=== PATIENT | male | born 1940 | race African-American/Black ===

== ENCOUNTER → 2016-12-02 | Outpatient (CLI) | payer OTHER ==
[2014-07-28 11:35] VITALS: BP 131/65
[~2016-12-02] MED LIST: AMLO1CAP5 PO; DORZ10DR21 EACHEYE; HYDR25TA9 PO; LATA2.5D2 EACHEYE; MESA800T2 PO; PIOG30TA20 PO; SIMV20TA PO; SITA1TAB11 PO; TERA10CA3 PO
--- NOTE | 2016-12-02 15:38 | RAD ---
Indication renal cyst. Grayscale imaging targeted to the kidneys was performed. The right kidney measures 10.5 x 4.6 x 3.9 cm and appears unremarkable. No hydronephrosis or mass is seen. The left kidney measures approximately 10.9 x 4.5 x 5.1 cm. There is a hypoechoic 5.2 cm mass attached to the left kidney compatible with a cyst. A similar finding was referenced on an examination 06/10/2016. Note is additionally made of a left renal calculus on this exam measuring approximately 1.4 cm in greatest dimension. Somewhat enlarged prostate additionally noted. IMPRESSION: Left renal cyst. Left renal calculus. Slightly enlarged prostate
== END | disposition home or self-care (01) ==
LOC: US 15:59
PROVIDERS: ATTEND Internal Medicine
DX: N20.0 Calculus of kidney (principal); N40.0 Benign prostatic hyperplasia without lower urinary tract symptoms
CPT/HCPCS: 76770

== ENCOUNTER → 2017-03-10 | Outpatient (CLI) | payer MEDICARE, OTHER ==
[2014-07-28 11:35] VITALS: BP 131/65
[~2017-03-10] MED LIST changes: +CONTRAST GIVEN MC PRN; +IOHEXOL 240 MG/ML 50ML VIAL. PO ONE; -PIOG30TA20 PO; +PIOG30TA41 PO
--- NOTE | 2017-03-10 18:16 | RAD ---
CT ABDOMEN AND PELVIS WITHOUT IV CONTRAST History: Abdominal mass seen on colonoscopy dated 02/07/2017 Comparison: Renal ultrasound dated 12/02/2016 Technique: After administration of oral contrast only due to elevated creatinine, Helical CT of the abdomen and pelvis was performed from the lung bases through the ischial tuberosities. Axial and coronal reconstructions were obtained. Abdomen Findings: Borderline cardiomegaly. Coronary artery calcifications. Bilateral linear pulmonary opacities likely related to atelectasis versus scarring. Evaluation of visceral organs is limited without intravenous contrast. Layering hyperattenuating material within the gallbladder. No gallbladder wall thickening or pericholecystic fluid. The liver, spleen, pancreas, and bilateral adrenal glands are normal. Small bilateral kidneys. 5.1 x 5.0 cm simple cyst off the inferior pole of the left kidney. 0.9 cm and 1.0 cm calculi in the left renal collecting system. No hydronephrosis or hydroureter. Visualized loops of l small bowel are normal. Narrowing within the sigmoid colon (image 41, series 2) with focal dilation of the large bowel immediately proximal to this up to 5.6 cm. Appendix appears within normal limits. There is no significant abdominal adenopathy. Mild atherosclerosis of the normal caliber abdominal aorta and its branches. Pelvis findings: Urinary bladder is normal. There is no free fluid. There is no significant pelvic or inguinal adenopathy. There is no acute bony abnormality. Mild multilevel degenerative changes of the visualized spine. IMPRESSION: 1. Narrowing within the sigmoid colon with focal dilation of the large bowel immediately proximal to this. Findings are concerning for malignancy, although discrete mass is not identified.. Recommend correlation with endoscopic findings. 2. No intra-abdominal or intrapelvic lymphadenopathy. 2. Layering hyperattenuating material within the gallbladder. Findings may relate to sludge or tiny stones. If patient received IV contrast at outside facility, this could relate to vicarious excretion of contrast. 3. Small bilateral kidneys. Simple left renal cyst. Nonobstructing left renal calculi. PQRS Compliance Statement: One or more of the following individualized dose reduction techniques were utilized for this examination: 1. Automated exposure control 2. Adjustment of the mA and/or kV according to patient size 3. Use of iterative reconstruction technique
== END | disposition home or self-care (01) ==
LOC: CT 08:54
PROVIDERS: ATTEND Internal Medicine Gastroenterology
DX: N28.1 Cyst of kidney, acquired (principal); N20.0 Calculus of kidney
CPT/HCPCS: 74176; Q9966

== ENCOUNTER 2017-08-20 18:44 | Inpatient (IN) | payer OTHER, MEDICARE ==
[2017-08-20] MEDS ORDERED: HYDROcodone/APAP 5/325MG 1 TAB TABLET PO (20:30)
[2017-08-20] MEDS ORDERED: DEXTROSE 50% 25 GM / 50ML DISP.SYRIN. IV (20:30)
[2017-08-20] MEDS ORDERED: ZOLPIDEM 5 MG TABLET. PO (20:30)
[2017-08-20] MEDS: DORZOLAMIDE/TIMOLOL 2%/0.5% OPHTH SOLUTION 10ML BOTTLE. OU (21:00)
[2017-08-20] MEDS: LATANOPROST 0.005% OPHTH SOLUTION 2.5ML BOTTLE. OU (21:00)
[2017-08-20 21:07] LABS: POC GLUCOSE 100 mg/dL (70-99)
[2017-08-20 22:18] LABS: ADD MAN DIFF? NO
[2017-08-20 22:20] LABS: BASO % 0 % (0-3); EOS # 0.2 x10^3/uL (0.0-0.7); EOS % 5 % (0-3); HEMATOCRIT 32.5 % (39.0-53.0); HEMOGLOBIN 10.9 g/dL (13.0-17.5); LYMPH # 1.2 x10^3/uL (1.0-4.8); LYMPH % 28 % (24-48); MEAN CORPUSCULAR HEMOGLOBIN 31 pg (25-35); MEAN CORPUSCULAR HGB CONC 34 g/dL (31-37); MEAN CORPUSCULAR VOLUME 91 fL (79-100); MONO # 0.8 x10^3/uL (0.0-1.1); MONO % 18 % (0-9); NEUT # 2.2 x10^3uL (1.8-7.7); NEUT % 49 % (31-73); PLATELET COUNT 250 x10^3/uL (140-400); RED BLOOD COUNT 3.56 x10^6/uL (4.30-5.70); WHITE BLOOD COUNT 4.4 x10^3/uL (4.0-11.0)
[2017-08-20] MEDS: IV NORMAL SALINE 1000ML BAG 1,000 ML IV (22:30)
[2017-08-20 22:37] LABS: ALBUMIN 2.8 g/dL (3.4-5.0); ALBUMIN/GLOBULIN RATIO 0.7 (1.0-1.7); ALK PHOS 48 U/L (46-116); ALT (SGPT) 14 U/L (16-63); ANION GAP 14 (6-14); AST (SGOT) 13 U/L (15-37); BLOOD UREA NITROGEN 44 mg/dL (8-26); BUN/CREATININE RATIO 11 (6-20); CALCIUM 8.2 mg/dL (8.5-10.1); CARBON DIOXIDE 20 mmol/L (21-32); CHLORIDE 105 mmol/L (98-107); CREATININE 4.1 mg/dL (0.7-1.3); GFR 17.3; GLUCOSE 93 mg/dL (70-99); POTASSIUM 3.7 mmol/L (3.5-5.1); SODIUM 139 mmol/L (136-145); TOTAL BILIRUBIN 0.3 mg/dL (0.2-1.0); TOTAL PROTEIN 7.1 g/dL (6.4-8.2)
[2017-08-21 04:02] LABS: ANION GAP 12 (6-14); BLOOD UREA NITROGEN 41 mg/dL (8-26); CALCIUM 8.3 mg/dL (8.5-10.1); CARBON DIOXIDE 21 mmol/L (21-32); CHLORIDE 109 mmol/L (98-107); GFR 17.8; GLUCOSE 91 mg/dL (70-99); POTASSIUM 3.6 mmol/L (3.5-5.1); SODIUM 142 mmol/L (136-145)
[2017-08-21] MEDS: INSULIN ASPART 300 UNITS/3 ML INSULN.PEN SQ ×3 (08:00→16:58)
[2017-08-21] MEDS: IV NORMAL SALINE 1000ML BAG 1,000 ML IV ×2 (08:10→17:56)
[2017-08-21] MEDS: REPAGLINIDE 0.5 MG TABLET PO ×2 (08:18→17:05)
[2017-08-21 08:21] LABS: POC GLUCOSE 116 mg/dL (70-99)
[2017-08-21] MEDS: DORZOLAMIDE/TIMOLOL 2%/0.5% OPHTH SOLUTION 10ML BOTTLE. OU ×2 (09:00→20:33)
[2017-08-21] MEDS: LINAGLIPTIN 5 MG TABLET PO (09:17)
[2017-08-21] MEDS: POLYETHYLENE GLYCOL 3350 17 GM PACKET. PO (09:18)
[2017-08-21] MEDS: TERAZOSIN 5 MG CAPSULE. PO (09:18)
[2017-08-21] MEDS: CYANOCOBALAMIN (VITAMIN B-12) 1,000 MCG TABLET. PO (09:19)
[2017-08-21] MEDS: amLODIPine BESYLATE 10 MG TABLET PO (09:20)
[2017-08-21] MEDS: SIMVASTATIN 20 MG TABLET PO (09:20)
[2017-08-21] MEDS: LATANOPROST 0.005% OPHTH SOLUTION 2.5ML BOTTLE. OU (09:20)
[2017-08-21 10:49] LABS: BILIRUBIN,URINE NEGATIVE (NEG); CLARITY,URINE CLEAR; COLOR,URINE YELLOW; GLUCOSE,URINE 100 mg/dL (NEG); NITRITE,URINE NEGATIVE (NEG); PH,URINE 5.5; PROTEIN,URINE 30 mg/dL (NEG-TRACE); UROBILINOGEN,URINE 0.2 mg/dL (0.2 mg/dL)
[2017-08-21 11:36] LABS: BACTERIA,URINE FEW /HPF (0-FEW); RBC,URINE RARE /HPF (0-2); WBC,URINE RARE /HPF (0-4)
[2017-08-21 11:37] LABS: SQUAMOUS EPITHELIAL CELL,UR OCC /LPF
[2017-08-21 11:39] LABS: POC GLUCOSE 140 mg/dL (70-99)
[2017-08-21 16:52] LABS: POC GLUCOSE 129 mg/dL (70-99)
[2017-08-21 20:52] LABS: POC GLUCOSE 100 mg/dL (70-99)
[2017-08-22] MEDS: IV NORMAL SALINE 1000ML BAG 1,000 ML IV (03:27)
[2017-08-22 04:29] LABS: MAGNESIUM 2.4 mg/dL (1.8-2.4)
[2017-08-22 04:30] LABS: ALBUMIN 2.7 g/dL (3.4-5.0); ANION GAP 14 (6-14); BLOOD UREA NITROGEN 40 mg/dL (8-26); CALCIUM 7.9 mg/dL (8.5-10.1); CARBON DIOXIDE 18 mmol/L (21-32); CHLORIDE 110 mmol/L (98-107); CREATININE 3.8 mg/dL (0.7-1.3); GFR 18.8; GLUCOSE 121 mg/dL (70-99); PHOSPHORUS 3.6 mg/dL (2.6-4.7); POTASSIUM 4.2 mmol/L (3.5-5.1); SODIUM 142 mmol/L (136-145)
[2017-08-22 05:43] LABS: HEMOGLOBIN 10.6 g/dL (13.0-17.5)
[2017-08-22] MEDS: REPAGLINIDE 0.5 MG TABLET PO ×2 (07:30→16:30)
[2017-08-22] MEDS: INSULIN ASPART 300 UNITS/3 ML INSULN.PEN SQ ×3 (08:00→17:00)
[2017-08-22 08:27] LABS: POC GLUCOSE 103 mg/dL (70-99)
[2017-08-22] MEDS: IV RINGERS,LACTATED 1000ML 1,000 ML IV ×3 (08:56→19:27)
[2017-08-22] MEDS: TERAZOSIN 5 MG CAPSULE. PO (09:00)
[2017-08-22] MEDS ORDERED: ONDANSETRON PF 4 MG/2 ML VIAL. IV (09:00)
[2017-08-22] MEDS ORDERED: PROCHLORPERAZINE 10 MG/2 ML VIAL. IV (09:00)
[2017-08-22] MEDS: LINAGLIPTIN 5 MG TABLET PO (09:00)
[2017-08-22] MEDS: POLYETHYLENE GLYCOL 3350 17 GM PACKET. PO (09:00)
[2017-08-22] MEDS: amLODIPine BESYLATE 10 MG TABLET PO (09:00)
[2017-08-22] MEDS ORDERED: fentaNYL PF VIAL 100 MCG/2 ML VIAL IV ×2 (09:00)
[2017-08-22] MEDS: SIMVASTATIN 20 MG TABLET PO (09:00)
[2017-08-22] MEDS ORDERED: LIDOCAINE 1% PF 2 ML VIAL. ID (09:00)
[2017-08-22] MEDS ORDERED: MORPHINE SULFATE 2 MG/ML DISP.SYRIN. IV (09:00)
[2017-08-22] MEDS: CYANOCOBALAMIN (VITAMIN B-12) 1,000 MCG TABLET. PO (09:00)
[2017-08-22] MEDS ORDERED: HYDROmorphone 2 MG/ML VIAL IV (09:00)
[2017-08-22] MEDS: LATANOPROST 0.005% OPHTH SOLUTION 2.5ML BOTTLE. OU ×2 (09:34→23:15)
[2017-08-22] MEDS: DORZOLAMIDE/TIMOLOL 2%/0.5% OPHTH SOLUTION 10ML BOTTLE. OU ×2 (09:34→23:19)
[2017-08-22 11:26] LABS: POC GLUCOSE 102 mg/dL (70-99)
[2017-08-22] MEDS ORDERED: PROPOFOL 20 ML IV (16:21)
[2017-08-22] MEDS ORDERED: ONDANSETRON PF 4 MG/2 ML VIAL. (16:21)
[2017-08-22] MEDS ORDERED: LIDOCAINE 2% PF Vial for OR 5 ML VIAL. (16:21)
[2017-08-22] MEDS ORDERED: SEVOFLURANE 31 TO 60 MINUTES. IH (16:21)
[2017-08-22] MEDS ORDERED: DEXAMETHASONE SOD PHOS 20 MG/5 ML VIAL. (16:21)
[2017-08-22] MEDS ORDERED: fentaNYL PF VIAL 100 MCG/2 ML VIAL (16:21)
[2017-08-22 16:34] LABS: POC GLUCOSE 84 mg/dL (70-99)
[2017-08-22] MEDS ORDERED: LIDOCAINE 2% JELLY 6ML IN APPLICATOR. (17:11)
[2017-08-22] MEDS ORDERED: ceFAZolin 1GM IVPB FOR OMNI 1 GM/50 ML BAG IV (17:12)
[2017-08-22] MEDS: IOHEXOL 300 MG/ML 100ML VIAL. (17:44)
[2017-08-22 18:58] LABS: POC GLUCOSE 82 mg/dL (70-99)
[2017-08-23 02:46] LABS: POC GLUCOSE 199 mg/dL (70-99)
[2017-08-23 06:45] LABS: ALBUMIN 2.7 g/dL (3.4-5.0); ANION GAP 14 (6-14); BLOOD UREA NITROGEN 32 mg/dL (8-26); CALCIUM 8.5 mg/dL (8.5-10.1); CARBON DIOXIDE 19 mmol/L (21-32); CHLORIDE 113 mmol/L (98-107); GFR 24.7; GLUCOSE 147 mg/dL (70-99); PHOSPHORUS 3.3 mg/dL (2.6-4.7); POTASSIUM 4.1 mmol/L (3.5-5.1); SODIUM 146 mmol/L (136-145)
[2017-08-23 07:56] LABS: POC GLUCOSE 130 mg/dL (70-99)
[2017-08-23] MEDS: INSULIN ASPART 300 UNITS/3 ML INSULN.PEN SQ ×3 (08:00→16:39)
[2017-08-23] MEDS: REPAGLINIDE 0.5 MG TABLET PO ×3 (08:22→16:53)
[2017-08-23] MEDS: CYANOCOBALAMIN (VITAMIN B-12) 1,000 MCG TABLET. PO (08:23)
[2017-08-23] MEDS: TERAZOSIN 5 MG CAPSULE. PO (08:26)
[2017-08-23] MEDS: POLYETHYLENE GLYCOL 3350 17 GM PACKET. PO (08:27)
[2017-08-23] MEDS: LINAGLIPTIN 5 MG TABLET PO (08:27)
[2017-08-23] MEDS: DORZOLAMIDE/TIMOLOL 2%/0.5% OPHTH SOLUTION 10ML BOTTLE. OU ×2 (08:27→21:52)
[2017-08-23] MEDS: amLODIPine BESYLATE 10 MG TABLET PO (08:27)
[2017-08-23] MEDS: SIMVASTATIN 20 MG TABLET PO (08:28)
[2017-08-23 11:30] LABS: POC GLUCOSE 151 mg/dL (70-99)
[2017-08-23] MEDS: IV RINGERS,LACTATED 1000ML 1,000 ML IV (11:45)
[2017-08-23 16:38] LABS: POC GLUCOSE 117 mg/dL (70-99)
[2017-08-23 21:46] LABS: POC GLUCOSE 133 mg/dL (70-99)
[2017-08-24] MEDS: IV RINGERS,LACTATED 1000ML 1,000 ML IV (02:27)
[2017-08-24 05:38] LABS: ADD MAN DIFF? NO
[2017-08-24 05:52] LABS: BASO % 0 % (0-3); EOS # 0.2 x10^3/uL (0.0-0.7); EOS % 3 % (0-3); HEMATOCRIT 30.2 % (39.0-53.0); HEMOGLOBIN 10.2 g/dL (13.0-17.5); LYMPH # 1.4 x10^3/uL (1.0-4.8); LYMPH % 24 % (24-48); MEAN CORPUSCULAR HEMOGLOBIN 31 pg (25-35); MEAN CORPUSCULAR HGB CONC 34 g/dL (31-37); MEAN CORPUSCULAR VOLUME 92 fL (79-100); MONO # 0.9 x10^3/uL (0.0-1.1); MONO % 16 % (0-9); NEUT # 3.1 x10^3uL (1.8-7.7); NEUT % 56 % (31-73); PLATELET COUNT 247 x10^3/uL (140-400); RED BLOOD COUNT 3.28 x10^6/uL (4.30-5.70); RED CELL DISTRIBUTION WIDTH 12.1 % (11.5-14.5); WHITE BLOOD COUNT 5.6 x10^3/uL (4.0-11.0)
[2017-08-24 06:37] LABS: MAGNESIUM 2.1 mg/dL (1.8-2.4)
[2017-08-24 06:38] LABS: ALBUMIN 2.6 g/dL (3.4-5.0); ANION GAP 10 (6-14); BLOOD UREA NITROGEN 28 mg/dL (8-26); CALCIUM 8.5 mg/dL (8.5-10.1); CARBON DIOXIDE 23 mmol/L (21-32); CHLORIDE 113 mmol/L (98-107); CREATININE 2.9 mg/dL (0.7-1.3); GFR 25.7; GLUCOSE 103 mg/dL (70-99); POTASSIUM 3.6 mmol/L (3.5-5.1); SODIUM 146 mmol/L (136-145)
[2017-08-24 07:44] LABS: POC GLUCOSE 102 mg/dL (70-99)
[2017-08-24] MEDS: SIMVASTATIN 20 MG TABLET PO (07:59)
[2017-08-24] MEDS: REPAGLINIDE 0.5 MG TABLET PO ×3 (07:59→16:39)
[2017-08-24] MEDS: LINAGLIPTIN 5 MG TABLET PO (08:00)
[2017-08-24] MEDS: CYANOCOBALAMIN (VITAMIN B-12) 1,000 MCG TABLET. PO (08:00)
[2017-08-24] MEDS: TERAZOSIN 5 MG CAPSULE. PO (08:00)
[2017-08-24] MEDS: INSULIN ASPART 300 UNITS/3 ML INSULN.PEN SQ ×3 (08:00→17:00)
[2017-08-24] MEDS: POLYETHYLENE GLYCOL 3350 17 GM PACKET. PO (08:01)
[2017-08-24] MEDS: amLODIPine BESYLATE 10 MG TABLET PO (08:01)
[2017-08-24] MEDS: LATANOPROST 0.005% OPHTH SOLUTION 2.5ML BOTTLE. OU (08:01)
[2017-08-24] MEDS: DORZOLAMIDE/TIMOLOL 2%/0.5% OPHTH SOLUTION 10ML BOTTLE. OU ×2 (08:01→21:26)
[2017-08-24] MEDS: POTASSIUM CHLORIDE 20 MEQ in IV DEXTROSE 5 %-0.45 % NACL 1,000 ML IV (09:30)
[2017-08-24 11:58] LABS: POC GLUCOSE 181 mg/dL (70-99)
[2017-08-24 14:55] LABS: POC GLUCOSE 164 mg/dL (70-99)
[2017-08-24 17:05] LABS: POC GLUCOSE 175 mg/dL (70-99)
[2017-08-24 20:21] LABS: POC GLUCOSE 165 mg/dL (70-99)
[2017-08-24] MEDS: POTASSIUM CL 20MEQ D5-0.45NACL 1,000 ML IV (21:27)
[2017-08-24] MEDS: ACETAMINOPHEN 325 MG TABLET. PO (23:23)
[2017-08-25] MEDS: INSULIN ASPART 300 UNITS/3 ML INSULN.PEN SQ ×3 (08:00→17:09)
[2017-08-25 08:04] LABS: ADD MAN DIFF? NO
[2017-08-25 08:06] LABS: BASO % 0 % (0-3); EOS # 0.1 x10^3/uL (0.0-0.7); EOS % 1 % (0-3); HEMATOCRIT 33.7 % (39.0-53.0); HEMOGLOBIN 11.2 g/dL (13.0-17.5); LYMPH # 0.8 x10^3/uL (1.0-4.8); LYMPH % 8 % (24-48); MEAN CORPUSCULAR HEMOGLOBIN 31 pg (25-35); MEAN CORPUSCULAR HGB CONC 33 g/dL (31-37); MEAN CORPUSCULAR VOLUME 92 fL (79-100); MONO # 1.2 x10^3/uL (0.0-1.1); MONO % 11 % (0-9); NEUT # 8.9 x10^3uL (1.8-7.7); NEUT % 81 % (31-73); PLATELET COUNT 243 x10^3/uL (140-400); RED BLOOD COUNT 3.67 x10^6/uL (4.30-5.70); RED CELL DISTRIBUTION WIDTH 12.2 % (11.5-14.5)
[2017-08-25] MEDS: SIMVASTATIN 20 MG TABLET PO (08:14)
[2017-08-25] MEDS: CYANOCOBALAMIN (VITAMIN B-12) 1,000 MCG TABLET. PO (08:14)
[2017-08-25] MEDS: REPAGLINIDE 0.5 MG TABLET PO ×3 (08:14→16:57)
[2017-08-25] MEDS: LINAGLIPTIN 5 MG TABLET PO (08:14)
[2017-08-25] MEDS: POLYETHYLENE GLYCOL 3350 17 GM PACKET. PO (08:14)
[2017-08-25] MEDS: POTASSIUM CL 20MEQ D5-0.45NACL 1,000 ML IV ×2 (08:14→16:58)
[2017-08-25] MEDS: LATANOPROST 0.005% OPHTH SOLUTION 2.5ML BOTTLE. OU (08:15)
[2017-08-25] MEDS: DORZOLAMIDE/TIMOLOL 2%/0.5% OPHTH SOLUTION 10ML BOTTLE. OU ×2 (08:15→20:52)
[2017-08-25] MEDS: amLODIPine BESYLATE 10 MG TABLET PO (08:18)
[2017-08-25] MEDS: TERAZOSIN 5 MG CAPSULE. PO (08:18)
[2017-08-25 08:30] LABS: ALBUMIN 2.9 g/dL (3.4-5.0); ANION GAP 10 (6-14); BLOOD UREA NITROGEN 22 mg/dL (8-26); CALCIUM 8.6 mg/dL (8.5-10.1); CARBON DIOXIDE 24 mmol/L (21-32); CHLORIDE 109 mmol/L (98-107); CREATININE 2.6 mg/dL (0.7-1.3); GFR 29.2; GLUCOSE 177 mg/dL (70-99); MAGNESIUM 1.8 mg/dL (1.8-2.4); PHOSPHORUS 2.5 mg/dL (2.6-4.7); POTASSIUM 3.9 mmol/L (3.5-5.1); SODIUM 143 mmol/L (136-145)
[2017-08-25 08:41] LABS: POC GLUCOSE 165 mg/dL (70-99)
[2017-08-25 12:03] LABS: POC GLUCOSE 132 mg/dL (70-99)
[2017-08-25 17:08] LABS: POC GLUCOSE 212 mg/dL (70-99)
[2017-08-26] MEDS: POTASSIUM CL 20MEQ D5-0.45NACL 1,000 ML IV (03:27)
[2017-08-26 05:51] LABS: ADD MAN DIFF? NO
[2017-08-26 05:54] LABS: BASO % 0 % (0-3); EOS # 0.2 x10^3/uL (0.0-0.7); EOS % 3 % (0-3); HEMATOCRIT 30.2 % (39.0-53.0); HEMOGLOBIN 10.4 g/dL (13.0-17.5); LYMPH # 0.8 x10^3/uL (1.0-4.8); LYMPH % 9 % (24-48); MEAN CORPUSCULAR HEMOGLOBIN 31 pg (25-35); MEAN CORPUSCULAR HGB CONC 35 g/dL (31-37); MEAN CORPUSCULAR VOLUME 91 fL (79-100); MONO % 11 % (0-9); NEUT # 6.9 x10^3uL (1.8-7.7); NEUT % 77 % (31-73); PLATELET COUNT 200 x10^3/uL (140-400); RED BLOOD COUNT 3.31 x10^6/uL (4.30-5.70); RED CELL DISTRIBUTION WIDTH 12.2 % (11.5-14.5)
[2017-08-26 05:57] LABS: POC GLUCOSE 139 mg/dL (70-99)
[2017-08-26 06:27] LABS: ALBUMIN 2.5 g/dL (3.4-5.0); ANION GAP 13 (6-14); BLOOD UREA NITROGEN 23 mg/dL (8-26); CARBON DIOXIDE 21 mmol/L (21-32); CHLORIDE 109 mmol/L (98-107); CREATININE 2.4 mg/dL (0.7-1.3); GLUCOSE 167 mg/dL (70-99); MAGNESIUM 1.6 mg/dL (1.8-2.4); PHOSPHORUS 2.2 mg/dL (2.6-4.7); POTASSIUM 3.6 mmol/L (3.5-5.1); SODIUM 143 mmol/L (136-145)
[2017-08-26 07:02] LABS: POC GLUCOSE 147 mg/dL (70-99)
[2017-08-26] MEDS: MAGNESIUM SULFATE 2GM 50 ML IV (07:04)
[2017-08-26] MEDS: REPAGLINIDE 0.5 MG TABLET PO ×2 (07:30→11:23)
[2017-08-26] MEDS: INSULIN ASPART 300 UNITS/3 ML INSULN.PEN SQ ×2 (08:00→11:29)
[2017-08-26] MEDS: TERAZOSIN 5 MG CAPSULE. PO (08:11)
[2017-08-26] MEDS: SIMVASTATIN 20 MG TABLET PO (08:11)
[2017-08-26] MEDS: amLODIPine BESYLATE 10 MG TABLET PO (08:12)
[2017-08-26] MEDS: LINAGLIPTIN 5 MG TABLET PO (08:12)
[2017-08-26] MEDS: CYANOCOBALAMIN (VITAMIN B-12) 1,000 MCG TABLET. PO (08:12)
[2017-08-26] MEDS: POLYETHYLENE GLYCOL 3350 17 GM PACKET. PO (08:17)
[2017-08-26] MEDS: DORZOLAMIDE/TIMOLOL 2%/0.5% OPHTH SOLUTION 10ML BOTTLE. OU (08:18)
[2017-08-26] MEDS: LATANOPROST 0.005% OPHTH SOLUTION 2.5ML BOTTLE. OU (08:18)
[2017-08-26 11:04] LABS: POC GLUCOSE 212 mg/dL (70-99)
== END 2017-08-26 16:34 | disposition home or self-care (01) | DRG 683 ==
LOC: 4 SOUTHWST 08-25 19:20 → 5 NORTH 18:44
PROVIDERS: Internal Medicine
PROC: 0T778DZ Dilation of Left Ureter with Intraluminal Device, Via Natural or Artificial Opening Endoscopic (ICD-10-PCS; principal; 2017-08-22 17:00)
PROC: BT1F1ZZ Fluoroscopy of Left Kidney, Ureter and Bladder using Low Osmolar Contrast (ICD-10-PCS; 2017-08-22 17:00)
DX: N17.0 Acute kidney failure with tubular necrosis (principal); K51.90 Ulcerative colitis, unspecified, without complications; E11.22 Type 2 diabetes mellitus with diabetic chronic kidney disease; N13.2 Hydronephrosis with renal and ureteral calculous obstruction; N18.3 Chronic kidney disease, stage 3 (moderate); E78.5 Hyperlipidemia, unspecified; I12.9 Hypertensive chronic kidney disease with stage 1 through stage 4 chronic kidney disease, or unspecified chronic kidney disease; Z80.7 Family history of other malignant neoplasms of lymphoid, hematopoietic and related tissues; Z82.49 Family history of ischemic heart disease and other diseases of the circulatory system; Z87.442 Personal history of urinary calculi; Z83.3 Family history of diabetes mellitus; Z87.891 Personal history of nicotine dependence; Z98.49 Cataract extraction status, unspecified eye
CPT/HCPCS: 36415; 71046; 74176; 76000; 76770; 80048; 80053; 80069; 81001; 82962; 83735; 85018; 85025; 87086; 93005; C1769; C2617; J0690; J1100; J1815; J2405; J2704; J3010; J7030; J7060; J7120; Q9967

== ENCOUNTER → 2017-09-04 | Outpatient (CLI) | payer OTHER, MEDICARE | END | disposition home or self-care (01) | LOC: RAD 11:20 | DX: N20.1 Calculus of ureter (principal); R14.0 Abdominal distension (gaseous) | CPT/HCPCS: 74018 ==

== ENCOUNTER → 2017-09-11 | Day surgery (SDC) | payer OTHER, MEDICARE ==
[~2017-09-11] MED LIST changes: -AMLO1CAP5 PO; -CONTRAST GIVEN MC PRN; +DEXAMETHASONE SOD PHOS 20 MG/5 ML VIAL.; -DORZ10DR21 EACHEYE; -HYDR25TA9 PO; +HYDROcodone/APAP 5/325MG 1 TAB TABLET PO; +HYDROmorphone 2 MG/ML VIAL IV; -IOHEXOL 240 MG/ML 50ML VIAL. PO ONE; +IOHEXOL 300 MG/ML 100ML VIAL.; -LATA2.5D2 EACHEYE; +LIDOCAINE 1% PF 2 ML VIAL. ID; +LIDOCAINE 1% PF 5 ML VIAL.; +LIDOCAINE 2% JELLY 6ML IN APPLICATOR.; -MESA800T2 PO; +MORPHINE SULFATE 2 MG/ML DISP.SYRIN. IV; +ONDANSETRON PF 4 MG/2 ML VIAL.; +PHENYLEPHRINE in 0.9% NACL PF 1 MG/10 ML SYRINGE. IV; -PIOG30TA41 PO; +PROCHLORPERAZINE 10 MG/2 ML VIAL. IV; +PROPOFOL 20 ML IV; +SEVOFLURANE 61 TO 120 MINUTES. IH; -SIMV20TA PO; -SITA1TAB11 PO; -TERA10CA3 PO; +ePHEDrine PF IN SALINE 50 MG/5 ML DISP.SYRIN IV; +fentaNYL PF VIAL 100 MCG/2 ML VIAL; +fentaNYL PF VIAL 100 MCG/2 ML VIAL IV
[2017-09-11] MEDS: IV RINGERS,LACTATED 1000ML 1,000 ML IV (15:04)
[2017-09-11 16:04] LABS: POC GLUCOSE 85 mg/dL (70-99)
[2017-09-11] MEDS: CIPROFLOXACIN 400MG PREMIX 200 ML IV (16:15)
[2017-09-11] MEDS: IOHEXOL 300 MG/ML 100ML VIAL. (16:24)
[2017-09-11 18:15] LABS: POC GLUCOSE 126 mg/dL (70-99)
== END | disposition home or self-care (01) ==
LOC: SURG 14:34
DX: N20.2 Calculus of kidney with calculus of ureter (principal); E78.00 Pure hypercholesterolemia, unspecified; I10 Essential (primary) hypertension; E11.9 Type 2 diabetes mellitus without complications; Z98.41 Cataract extraction status, right eye; Z79.899 Other long term (current) drug therapy; Z98.42 Cataract extraction status, left eye; Z87.891 Personal history of nicotine dependence
CPT/HCPCS: 52356; 74420; 82962; C1769; C2617; J0744; J1100; J2370; J2405; J2704; J3010; Q9967

== ENCOUNTER → 2017-10-16 | Outpatient (CLI) | payer OTHER | END | disposition home or self-care (01) | LOC: ECHO 12:58 | DX: I08.3 Combined rheumatic disorders of mitral, aortic and tricuspid valves (principal); R60.0 Localized edema | CPT/HCPCS: 93306 ==

== ENCOUNTER → 2019-02-25 | Outpatient (CLI) | payer OTHER ==
[2017-09-11 18:40] VITALS: BP 119/61
[~2019-02-25] MED LIST changes: +AMLO10TA8 PO; +AMLO1CAP5 PO; +BISA-42 PO; +CYAN200014 PO; -DEXAMETHASONE SOD PHOS 20 MG/5 ML VIAL.; +DORZ10DR21 EACHEYE; +HYDR-2145 PO; +HYDR-3164 PO; -HYDROcodone/APAP 5/325MG 1 TAB TABLET PO; -HYDROmorphone 2 MG/ML VIAL IV; -IOHEXOL 300 MG/ML 100ML VIAL.; +LATA2.5D2 EACHEYE; +LEVO250T25 PO; -LIDOCAINE 1% PF 2 ML VIAL. ID; -LIDOCAINE 1% PF 5 ML VIAL.; -LIDOCAINE 2% JELLY 6ML IN APPLICATOR.; +MESA800T2 PO; -MORPHINE SULFATE 2 MG/ML DISP.SYRIN. IV; +NATE60TA2 PO; -ONDANSETRON PF 4 MG/2 ML VIAL.; -PHENYLEPHRINE in 0.9% NACL PF 1 MG/10 ML SYRINGE. IV; +PIOG30TA41 PO; +POLY17PO29 PO; -PROCHLORPERAZINE 10 MG/2 ML VIAL. IV; -PROPOFOL 20 ML IV; -SEVOFLURANE 61 TO 120 MINUTES. IH; +SIMV20TA PO; +SITA1TAB11 PO; +SITA50TA PO; +TERA10CA3 PO; -ePHEDrine PF IN SALINE 50 MG/5 ML DISP.SYRIN IV; -fentaNYL PF VIAL 100 MCG/2 ML VIAL; -fentaNYL PF VIAL 100 MCG/2 ML VIAL IV
--- NOTE | 2019-02-25 10:50 | CARD ---
MR#: [id number] Date of Study: 02/25/2019 Ordering Physician: SALBADOR MAC, Referring Physician: SALBADOR MAC, Tech: Olinda Nagy LO APPROVED REPORT EXAM: Two-dimensional and M-mode echocardiogram with Doppler and color Doppler. Other Information Quality : Good INDICATION Murmur 2D DIMENSIONS RVDd2.3 (2.9-3.5cm)Left Atrium(2D)3.7 (1.6-4.0cm) IVSd0.9 (0.7-1.1cm)Aortic Root(2D)2.9 (2.0-3.7cm) LVDd4.5 (3.9-5.9cm)LVOT Diameter2.0 (1.8-2.4cm) PWd0.7 (0.7-1.1cm)LVDs2.8 (2.5-4.0cm) FS (%) 36.9 %SV61.1 ml LVEF(%)60.0 (>50%) Aortic Valve AoV Peak Ricki.135.3cm/sAoV VTI30.0cm AO Peak GR.7.3mmHgLVOT Peak Ricki.115.4cm/s LVOT VTI 24.75cmAO Mean GR.4mmHg LYRIC (VMAX)2.12lq9NEZ (VTI)2.58cm2 AI P 1/2 [id number] Mitral Valve MV E Frgflxys60.5cm/sMV DECEL [id number] MV A Suuckzdq378.9cm/sMV KTU13ff E/A Ratio0.8MVA (PHT)3.35cm2 TDI E/Lateral E'10.1E/Medial E'12.2 Tricuspid Valve TR P. Ejhqkqho021cn/sRAP PGNQQRWO2wzVf TR Peak Gr.83htNrIVQH19isXf Pulmonary Vein S1 Ighttnfa09.4cm/sD2 Rjogzsmm01.5cm/s LEFT VENTRICLE The left ventricle is normal size. There is normal left ventricular wall thickness. The left ventricu lar systolic function is normal. The Ejection Fraction is 55-60%. There is normal LV segmental wall m otion. Transmitral Doppler flow pattern is Grade I-abnormal relaxation pattern. RIGHT VENTRICLE The right ventricle is normal size. The right ventricular systolic function is normal. ATRIA The left atrium size is normal. The right atrium size is normal. The interatrial septum is intact wit h no evidence for an atrial septal defect or patent foramen ovale as noted on 2-D or Doppler imaging. AORTIC VALVE The aortic valve is mildly thickened but opens well. Doppler and Color Flow revealed mild eccentric a ortic regurgitation. There is no significant aortic valvular stenosis. MITRAL VALVE The mitral valve is calcified but opens well. Mitral annular calcification is mild. There is no evide nce of mitral valve prolapse. There is no mitral valve stenosis. Doppler and Color-flow revealed mild mitral regurgitation. TRICUSPID VALVE The tricuspid valve is normal in structure and function. Doppler and Color Flow revealed mild tricusp id regurgitation. There is mild pulmonary hypertension. The PA pressure was estimated at 37 mmHg. The re is no tricuspid valve stenosis. PULMONIC VALVE The pulmonic valve is not well visualized. Doppler and Color Flow revealed no pulmonic valvular regur gitation. There is no pulmonic valvular stenosis. GREAT VESSELS The aortic root is normal in size. The ascending aorta is normal in size. The IVC was not visualized. PERICARDIAL EFFUSION There is no evidence of significant pericardial effusion. Critical Notification Critical Value: No <Conclusion> The left ventricular systolic function is normal. The Ejection Fraction is 55-60%. Transmitral Doppler flow pattern is Grade I-abnormal relaxation pattern. Mild eccentric aortic regurgitation. Mild mitral regurgitation. There is no evidence of significant pericardial effusion. Signed by : Prudencio Torres, Electronically Approved : 02/25/2019 10:50:27
--- NOTE | 2019-02-25 11:11 | RAD ---
MR#: [id number] Date of Study: 02/25/2019 Ordering Physician: SALBADOR MAC, Referring Physician: SALBADOR MAC, Tech: Patricia Meade, MARIAH, RVT, RTR APPROVED REPORT Patient Location: OUT-PATIENT Laterality:Bilateral Indications Bruit Doppler Spectral Velocity Analysis Right Left pCCA 76/12 cm/spCCA 105/14 cm/s mCCA 71/16 cm/smCCA 71/14 cm/s dCCA 71/12 cm/sdCCA 74/9 cm/s Bulb 57/11 cm/sBulb 58/11 cm/s ECA 96/10 cm/sECA 70/10 cm/s pICA 52/10 cm/spICA 53/10 cm/s Elsa 110/22 cm/smICA 81/24 cm/s dICA 81/23 cm/sdICA 67/23 cm/s Vert. 44/12 cm/sVert. 53/12 cm/s ICA/CCA 1.54ICA/CCA 1.15 Findings Grayscale images of the bilateral common carotid, internal and external carotid vessels reveal mild s oft plaque and diffuse intimal hyperplasia. Spectral waveforms and color Doppler are grossly within normal limits. No significant velocity accele ration is noted. 0 to less than 50% stenosis by velocity criteria. Normal ICA to CCA ratios bilateral ly. Critical Notification Critical Value: No <Conclusion> No significant carotid artery stenosis. Signed by : Salbador Mac, Electronically Approved : 02/25/2019 11:10:57
== END | disposition home or self-care (01) ==
LOC: ECHO 08:47
PROVIDERS: ATTEND Internal Medicine Cardiovascular Disease
DX: I08.3 Combined rheumatic disorders of mitral, aortic and tricuspid valves (principal); I27.20 Pulmonary hypertension, unspecified; I77.3 Arterial fibromuscular dysplasia; I65.23 Occlusion and stenosis of bilateral carotid arteries
CPT/HCPCS: 93306; 93880